=== PATIENT | male | born 1945 | race Caucasian/White ===

== ENCOUNTER 2024-09-28 09:32 | Day surgery (SDC) | payer OTHER, MEDICARE ==
[2024-09-24 12:24] LABS: BASOPHILS % (AUTO) 0.3 % (0-1); EOSINOPHILS # (AUTO) 0.2 X10'3 (0-0.9); EOSINOPHILS % (AUTO) 3.8 % (0-6); HEMATOCRIT 46.9 % (42.0-52.0); HEMOGLOBIN 15.9 g/dl (14.0-17.9); LYMPHOCYTES # (AUTO) 0.7 X10'3 (1.1-4.8); LYMPHOCYTES % (AUTO) 12.9 % (21-51); MEAN CORPUSCULAR HEMOGLOBIN 32.5 PG (27.0-31.0); MEAN CORPUSCULAR HGB CONC 33.8 g/dL (33.0-36.5); MEAN CORPUSCULAR VOLUME 96.2 FL (78-98); MONOCYTES # (AUTO) 0.7 X10'3 (0-0.9); MONOCYTES % (AUTO) 12.8 % (2-12); NEUTROPHILS # (AUTO) 3.6 X10'3 (1.8-7.7); NEUTROPHILS % (AUTO) 70.2 % (42-75); PLATELET COUNT 209 X10'3 (140-440); RED BLOOD COUNT 4.88 X10'6 (4.70-6.10); RED CELL DISTRIBUTION WIDTH 14.8 % (11.5-14.5); WHITE BLOOD COUNT 5.1 X10'3 (4.5-11.0)
[2024-09-24 12:31] LABS: APTT 25 SECONDS (22-32); PROTHROMBIN TIME 10.3 SECONDS (9.0-12.0)
[2024-09-24 12:33] LABS: ALBUMIN 3.7 G/DL (3.4-5.0); ANION GAP 6 (8-16); BLOOD UREA NITROGEN 22 MG/DL (7-18); CALCIUM 9.3 MG/DL (8.5-10.1); CHLORIDE 101 MMOL/L (99-107); CHOLESTEROL 186 MG/DL (0-200); CREATININE 1.05 MG/DL (0.60-1.10); GLUCOSE 99 MG/DL (70-104); HDL CHOLESTEROL 47 MG/DL (35-60); LDL CHOLESTEROL 109 MG/DL (50-100); POTASSIUM 4.4 MMOL/L (3.5-5.1); SODIUM 139 MMOL/L (135-145); TOTAL CARBON DIOXIDE 32.2 MMOL/L (24-32); TRIGLYCERIDES 337 MG/DL (20-135); eGFR 68 ML/MIN
[2024-09-28] VITALS (9 sets, daily range): BP systolic 96–145; BP diastolic 42–70; PULSE 43–50; RESP 13–17; TEMP 98.3; O2SAT 95–97
[~2024-09-28] VITALS: Ht 177.8 cm; Wt 73.1 kg
[~2024-09-28 09:32] MED LIST: ASPI-1265 PO; COMP-13; EMPA10TA PO; FURO20TA4 PO; METO-395 PO; SACU1TAB PO; SPIR25TA PO
[2024-09-28] MEDS ORDERED: EMPA25TA PO (09:55)
[2024-09-28] MEDS ORDERED: SACU1TAB PO (09:55)
[2024-09-28] MEDS ORDERED: METO50TA7 PO (09:55)
[2024-09-28] MEDS ORDERED: SPIR25TA5 PO (09:55)
[2024-09-28] MEDS: diphenhydrAMINE 25mg capsule PO PRN (12:35)
[2024-09-28] MEDS: LORazepam 0.5 MG tablet PO PRN (12:35)
[2024-09-28] MEDS: normal saline 1,000 ML IV SCH (12:36)
[2024-09-28] MEDS ORDERED: verapamil 2.5 mg/ml inj IV ONE (13:07)
[2024-09-28] MEDS ORDERED: LIDOcaine 1% (10mg/ml) 2ml vial ONE (13:07)
[2024-09-28] MEDS ORDERED: fentaNYL/PF 50MCG/1 ML 2ML syringe ONE (13:08)
[2024-09-28] MEDS ORDERED: nitroGLYCERIN 500mcg/5mL D5W 5 ML IV ONE (13:08)
[2024-09-28] MEDS ORDERED: midazolam 1 mg/ML 2ml injection ONE (13:08)
[2024-09-28] MEDS ORDERED: heparin 1,000unit/ml 10ml vial 10 ML ONE (13:08)
[2024-09-28] MEDS ORDERED: iohexol 350MG/ML 100ml bottle IV ONE (13:08)
[2024-09-28] MEDS ORDERED: HYDROcodone/acetaminophen 5mg/325mg tablet PO PRN (14:45)
[2024-09-28] MEDS ORDERED: HYDROcodone/acetaminophen 10/325mg tab PO PRN (14:45)
== END 2024-09-28 16:15 | disposition home or self-care (01) ==
LOC: SSTAY O 09:32
PROVIDERS: ATTEND Internal Medicine Interventional Cardiology
DX: I11.0 Hypertensive heart disease with heart failure (principal); I50.22 Chronic systolic (congestive) heart failure; I44.4 Left anterior fascicular block; I25.2 Old myocardial infarction; R94.31 Abnormal electrocardiogram [ECG] [EKG]; I25.10 Atherosclerotic heart disease of native coronary artery without angina pectoris; E78.00 Pure hypercholesterolemia, unspecified; Z85.850 Personal history of malignant neoplasm of thyroid; Z79.82 Long term (current) use of aspirin; Z79.899 Other long term (current) drug therapy
CPT/HCPCS: 36415; 80048; 80061; 85025; 85610; 85730; 93005; 93458; 99152; J1644; J2250; J3010; J3490; J7030; Q0163; Q9967; 99153; A6258; A6402; A6449; C1769; C1894